=== PATIENT | female | born 1945 | race Caucasian/White ===

== ENCOUNTER → 2019-10-22 14:52 | Outpatient (CLI) | payer MEDICARE, OTHER, SELFPAY ==
--- NOTE | 2019-10-22 15:01 | RAD_ITS ---
STUDY: X-RAY - ABDOMEN/PELVIS REASON FOR EXAM: Female, 74 years old. CBD stent TECHNIQUE: AP supine and upright views of the abdomen and pelvis. COMPARISON: None. FINDINGS: Normal visualized lung bases. A radiopaque stent approximately 12 cm in length is seen directly in the midabdomen. This is an unusual position for biliary stent, which is typically seen in the right upper quadrant. There is an unremarkable bowel gas pattern. Residual contrast seen in the rectosigmoid. There is no demonstrated free abdominal air. The visualized liver, spleen and kidneys are grossly normal in size and morphology. Normal soft tissue structures. There are diffuse degenerative changes of the visualized lumbar spine. There is levoconvex scoliosis. RAD/Abd Inc Decub and/or Erect IMPRESSION: Unusual position for biliary stent. It may be displaced and reside in the duodenum. No gross bowel obstruction. Electronically Signed: Mikhail Savage MD at 18:13 EDT , Service support ,
== END ==
PROVIDERS: PCP Preventive Medicine Occupational Medicine; Referring Provider Internal Medicine Gastroenterology; Visit Provider Internal Medicine Gastroenterology
DX: T82.897A Other specified complication of cardiac prosthetic devices, implants and grafts, initial encounter (principal)
CPT/HCPCS: 74019